=== PATIENT | female | born 1965 | race Two or more races ===

== ENCOUNTER 2023-10-12 14:46 | Outpatient (REF) | payer SELFPAY ==
[2023-10-15 07:34] LABS: TS Negative Control Passed; TS Panel A 2; TS Panel B 0; TS Positive Control Passed; TSpotTB Negative (Negative)
== END 2023-10-12 14:47 | disposition home or self-care (01) ==
LOC: HO.LAB 14:46
PROVIDERS: Visit Provider Internal Medicine
DX: Z02.89 Encounter for other administrative examinations (principal)
CPT/HCPCS: 36415; 86481